=== PATIENT | male | born 1930 | race Caucasian/White ===

== ENCOUNTER 2017-01-17 07:24 | Emergency (ER) ==
[2017-01-17 07:24] VITALS: BMI 20.7
[2017-01-17 07:34] VITALS: BP 147/82; TEMP 98.5
--- NOTE | 2017-01-17 07:38 | ED.PDOC ---
General ED Provider: Dr. JON GIL JR Chief Complaint: Fall Stated Complaint: FELL IN KITCHEN THIS AM. UNSURE WHAT CAUSED FALL. DENIES HITTING HEAD OR LOC. LARGE SKIN TEAR LEFT FOREARM NEAR ELBOW.[End]0500 today 98.5 83 20 97% 147/82 4/10 SKIN TEAR LEFT FOREARM NEAR ELBOW. BLEEDING CONTROLLED. Time Seen by Physician: 07:38 Mode of Arrival: Walk-In Information Source: Patient, Family Exam Limitations: No limitations Primary Care Provider: FOUZIA OGLESBY Nursing and Triage Documentation Reviewed and Agree: Yes Review of Systems - Review Of Systems Constitutional: Reports: No symptoms Eyes: Reports: No symptoms Ears, Nose, Mouth, Throat: Reports: No symptoms Respiratory: Reports: No symptoms Cardiac: Reports: No symptoms GI: Reports: No symptoms : Reports: No symptoms Musculoskeletal: Reports: Other (toe pain) Skin: Reports: Lesions Neurological: Reports: No symptoms Endocrine: Reports: No symptoms Hematologic/Lymphatic: Reports: No symptoms All Other Systems: Other Past Medical History - Past Medical History Previously Healthy: Yes Endocrine: Reports: None Cardiovascular: Reports: Hypertension, A-Fib Respiratory: Reports: None Hematological: Reports: None Gastrointestinal: Reports: None Genitourinary: Reports: None Neuro/Psych: Reports: TIA Musculoskeletal: Reports: Arthritis Cancer: Reports: Breast - Surgical History General Surgical History: Reports: Pacemaker, Orthopedic (KNEE X 2, SHOULDER) - Family History Family History: Reports: Unknown - Social History Smoking Status: Former smoker Hx Substance Use: No Alcohol Screening: None - Immunizations Tetanus Shot up to Date: No Physical Exam - Physical Exam Appearance: Well-appearing, Thin Pain Distress: Mild Eyes: BENY, EOMI, Conjunctiva clear Neck: Supple Respiratory: Airway patent, Rhonchi (DENISHA CTA after deep breath) Cardiovascular: RRR, Pulses normal, No rub, No murmur GI/: Soft, Nontender, No masses, Bowel sounds normal, No Organomegaly Musculoskeletal: Normal strength, ROM intact, No edema, No calf tenderness Skin: Warm, Dry, Normal color (skin tears times three left forearm, erythema left medial scapula scalp nontender) Neurological: Sensation intact, Motor intact, Reflexes intact, Cranial nerves intact, Alert, Oriented Psychiatric: Affect appropriate, Mood appropriate Critical Care Note - Critical Care Note Total Time (mins): 0 Course - Course Orders, Labs, Meds: Orders Category Date Time Status ED WOUND CARE .ONCE EMERGENCY 01/17/17 08:02 Active Diphth,Pertuss(Acell),Tet Vac [Boostrix] MEDS 01/17/17 08:25 Discontinued 0.5 ml IM .ONCE ONE Medications Discontinued Medications Generic Name Dose Route Start Last Admin Trade Name Freq PRN Reason Stop Dose Admin Diphtheria/Pertussis/Tetanus Vacc 0.5 ml 01/17/17 08:25 Boostrix IM 01/17/17 08:26 .ONCE ONE Vital Signs: Temp Pulse Resp BP Pulse Ox 01/17/17 07:26 98.5 F 83 20 147/82 H 97 Departure - Departure Time of Disposition: 07:56 Disposition: HOME SELF-CARE Discharge Problem: Falls, Traumatic tear of skin Instructions: Skin Tear (ED), Chronic Wound Care (ED) Condition: Good Pt referred to PMD for follow-up: Yes Additional Instructions: soak left foot in soapy water or Epsom salts 20 minutes once or twice a day apply bacitracin or any antibiotic ointment twice a day 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 or may need a biopsy Skin on arm is torn- bandage change daily bacitracin to open area should heal within one week no evidence of head injury if confuses headache or not acting self return for recheck recheck PMD one week, sooner if not resolving Prescriptions: Bacitracin 1 applic TP 2-4XD #1 pkg Bacitracin 1 applic TP 2-4XD #1 pkg Allergies/Adverse Reactions: Allergies acetaminophen [From Darvocet-N 100] Adverse Reaction (Verified 01/17/17 07:25) clarithromycin [From Biaxin] Adverse Reaction (Verified 01/17/17 07:25) propoxyphene napsylate [From Darvocet-N 100] Adverse Reaction (Verified 07:25) Home Medications: Ambulatory Orders Bacitracin 1 applic TP 2-4XD #1 pkg 01/17/17 Bacitracin 1 applic TP 2-4XD #1 pkg 01/17/17 Disposition Discussed With: Patient, Family
[2017-01-17] MEDS ORDERED: TENIVAC IM ONE (08:18)
[2017-01-17] MEDS ORDERED: BOOSTRIX IM ONE (08:25)
== END 2017-01-17 08:39 | disposition home or self-care (01) ==
LOC: ED 07:24
DX: S51.812A Laceration without foreign body of left forearm, initial encounter (principal); M79.676 Pain in unspecified toe(s); W19.XXXA Unspecified fall, initial encounter
CPT/HCPCS: 90471; 99283

== ENCOUNTER 2017-04-09 19:57 | Outpatient (CLI) ==
[2017-04-10 00:36] VITALS: BMI 20.9
== END 2017-04-09 19:58 | disposition home or self-care (01) ==
LOC: AMBL 19:57
PROVIDERS: ATTEND Family Medicine
DX: R19.7 Diarrhea, unspecified (principal); R53.1 Weakness; Z95.0 Presence of cardiac pacemaker

== ENCOUNTER 2017-04-09 20:06 | Inpatient (IN) | payer OTHER ==
[2017-04-09] MEDS ORDERED: SODIUM CHLORIDE 1,000 ML IV STA ×2 (20:31→22:01)
[2017-04-09 21:28] LABS: BASOPHILS % (AUTO) 0.7 % (0.0-3.0); EOSINOPHILS # (AUTO) 0.1 K/ul (0.0-0.7); EOSINOPHILS % (AUTO) 1.5 % (0.0-7.0); HEMATOCRIT 39.3 % (42.0-52.0); IMMATURE GRANULOCYTE % (AUTO) 1.3 % (0.0-5.0); LYMPHOCYTES # (AUTO) 1.2 K/uL (0.60-3.4); LYMPHOCYTES % (AUTO) 22.3 (10.0-50.0); MEAN CORPUSCULAR HEMOGLOBIN 31.6 pg (27.0-31.0); MEAN CORPUSCULAR HGB CONC 33.1 (31.8-35.4); MEAN CORPUSCULAR VOLUME 95.6 fl (80.0-94.0); MONOCYTES # (AUTO) 0.5 K/uL (0.4-2.0); MONOCYTES % (AUTO) 8.8 (0-10); NEUTROPHILS # (AUTO) 3.5 K/ul (2.0-6.9); NEUTROPHILS % (AUTO) 65.4; PLATELET COUNT 191 10^3/uL (140-440); RED BLOOD COUNT 4.11 10^6/ul (4.70-6.10); WHITE BLOOD COUNT 5.37 K/ul (4.2-10.2)
--- NOTE | 2017-04-09 21:33 | CT ---
EXAM: CT scan of the abdomen and pelvis without contrast HISTORY: Diarrhea. TECHNIQUE: Imaging of the abdomen and pelvis was performed without contrast. 3 mm thin axial image s and coronal and sagittal reconstructions were provided for interpretation. FINDINGS: The liver, spleen, pancreas, adrenal glands appear normal. The proximal ureters are norm al size. 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 The aneurysm measures approximately 7.7 cm in length. There is atherosclerotic calcification of the wall of the abdominal aorta. The small and large bowel loops are normal caliber. There has be en previous cholecystectomy. There is a calcified area seen lateral to the mid and inferior pole of the left kidney. The findings may represent a chronic calcified subcapsular hematoma. The appendix appears normal. The helical images obtained through the pelvis demonstrate a normal appearance of the rectum, urinar y bladder. There is no free fluid seen within the pelvis. The appendix appears normal. There is n o free air. No acute abnormalities are seen within the anterior abdominal wall. Patchy opacities ar e suspected in the right lung base. The left lung base appears clear. No lytic or blastic lesions a re seen within the osseous structures. IMPRESSION: There is no bowel obstruction or acute inflammatory change seen within the abdomen and pelvis. There is a fusiform aneurysm of the infrarenal abdominal aorta measuring 5.5 cm diameter. Probable pneumonia seen in the right lung base. Previous cholecystectomy.
[2017-04-09 21:48] LABS: ALBUMIN 3.5 g/dL (3.4-5.0); ALBUMIN/GLOBULIN RATIO 0.83; ANION GAP 14.1; BILIRUBIN,TOTAL 0.71 mg/dL (0.00-1.20); BUN/CREATININE RATIO 25.8; CALCIUM 9.4 mg/dL (8.2-10.2); CREATININE 1.24 mg/dL (0.60-1.10); POTASSIUM 4.1 mmol/L (3.5-5.1); TOTAL PROTEIN 7.7 g/dL (5.8-8.1)
--- NOTE | 2017-04-09 22:25 | CT ---
EXAM: CT chest without intravenous contrast 04/09/2017. Sagittal and coronal reformatted images ob tained HISTORY: Cough COMPARISON: 04/14/2014 FINDINGS: Moderate cardiomegaly. Left-sided pacer device is in place. Multifocal atelectasis and scarring. Multiple pleural based calcifications. This may relate to prio r asbestos exposure. Ground-glass density throughout the right lower lobe. This involves a small portion of the right mi ddle lobe. This is suggestive of pneumonitis/pneumonia. No focal pulmonary consolidation. No pleural effusion or pneumothorax. IMPRESSION: 1. Cardiomegaly. Left-sided pacer device in place. 2. Multifocal atelectasis and scarring 3. Right basilar ground-glass infiltrates suggestive of pneumonitis/pneumonia. 4. 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 5. Aneurysmal dilatation of the abdominal aorta. This is only partially visualized. Please refer to report of CT abdomen pelvis for further evaluation.
[2017-04-09 22:42] LABS: BILIRUBIN,URINE 1+ (NEGATIVE); KETONES,URINE 1+ (NEGATIVE); LEUKOCYTE ESTERASE ,URINE Negative (NEGATIVE); NITRITE,URINE Negative (NEGATIVE); PH,URINE 5.5 (5-9); PROTEIN,URINE 1+ (NEGATIVE); URINE, BLOOD Negative (NEGATIVE)
[2017-04-09 22:44] LABS: ADD URINE MICROSCOPIC YES
--- NOTE | 2017-04-09 23:56 | ED.PDOC ---
General ED Provider: Dr. OWEN BROOKS-ER Chief Complaint: Diarrhea Stated Complaint: hes had three days of diarrhea and not eating Time Seen by Physician: 20:15 Mode of Arrival: Ambulance Information Source: Patient, Family Exam Limitations: Dementia Primary Care Provider: FOUZIA PAREKH Nursing and Triage Documentation Reviewed and Agree: Yes GI Complaint Exam - Vomiting/Diarrhea Complaint/Exam Onset/Duration: 3 days Symptoms Are: Resolved Initial Severity: Mild Current Severity: Mild Character of Diarrhea: Reports: Watery Aggravating: Reports: None Alleviating: Reports: None Associated Signs and Symptoms: Denies: Dizziness, Light-headedness, Melena, Hematemesis, Fever, Abdominal pain, Cramping Non-GI Risk Factors: Reports: None Abdominal Findings: Present: None Kussmaul Respirations Present: No Differential Diagnoses: Dehydration, Viral Gastroenteritis, UTI Review of Systems - Review Of Systems Constitutional: Reports: No symptoms Eyes: Reports: No symptoms Ears, Nose, Mouth, Throat: Reports: No symptoms Respiratory: Reports: No symptoms Cardiac: Reports: No symptoms GI: Reports: Diarrhea, Nausea, Poor appetite : Reports: No symptoms Musculoskeletal: Reports: No symptoms Skin: Reports: No symptoms Neurological: Reports: No symptoms Endocrine: Reports: No symptoms Hematologic/Lymphatic: Reports: No symptoms All Other Systems: Reviewed and Negative Past Medical History - Past Medical History Previously Healthy: Yes Endocrine: Reports: None Cardiovascular: Reports: Hypertension, A-Fib Respiratory: Reports: None Hematological: Reports: None Gastrointestinal: Reports: None Genitourinary: Reports: None Neuro/Psych: Reports: TIA, Dementia Musculoskeletal: Reports: Arthritis Cancer: Reports: Breast Other Pertinent Past Medical History: htn ca arth abib tia arth pacer - Surgical History General Surgical History: Reports: Pacemaker, Orthopedic (KNEE X 2, SHOULDER) - Family History Family History: Reports: Unknown - Social History Smoking Status: Former smoker Hx Substance Use: No Alcohol Screening: None Lives: With family - Immunizations Tetanus Shot up to Date: No Physical Exam - Physical Exam Appearance: Well-appearing, No pain distress, Well-nourished Eyes: BENY, EOMI, Conjunctiva clear ENT: Ears normal, Nose normal, Oropharynx normal Neck: Supple Respiratory: Airway patent, Breath sounds clear, Breath sounds equal, Respirations nonlabored Cardiovascular: RRR, Pulses normal, No rub, No murmur GI/: Soft, Nontender, No masses, Bowel sounds normal, No Organomegaly Musculoskeletal: Normal strength, ROM intact, No edema, No calf tenderness Skin: Warm, Dry, Normal color Neurological: Sensation intact, Motor intact, Reflexes intact, Cranial nerves intact, Alert, Oriented Psychiatric: Affect appropriate, Mood appropriate Interpretation - Radiology Interpretation Radiology Interpretation By: Radiologist Radiology Results: Negative Exam Interpreted: CT Scan Physician Notification - Case Discussed Physician Notified: dr parekh Time of Notification: 23:56 Critical Care Note - Critical Care Note Total Time (mins): 0 Course - Course Hematology/Chemistry: 04/09/17 21:20 04/09/17 21:20 Orders, Labs, Meds: Lab Review 04/09/17 04/09/17 21:20 22:30 WBC 5.37 RBC 4.11 L Hgb 13.0 L Hct 39.3 L MCV 95.6 H MCH 31.6 H MCHC 33.1 RDW Coeff of Lucina 13.2 Plt Count 191 Immature Gran % (Auto) 1.3 Neut % (Auto) 65.4 Lymph % (Auto) 22.3 Dixon % (Auto) 8.8 Eos % (Auto) 1.5 Baso % (Auto) 0.7 Immature Gran # (Auto) 0.1 Neut # 3.5 Lymph # 1.2 Dixon # 0.5 Eos # 0.1 Baso # 0.0 Sodium 137 Potassium 4.1 Chloride 105 Carbon Dioxide 22 L Anion Gap 14.1 BUN 32 H Creatinine 1.24 H Estimated GFR (MDRD) 55.00 BUN/Creatinine Ratio 25.80 Glucose 121 H Lactic Acid 11.7 Calcium 9.4 Total Bilirubin 0.71 AST 18 ALT 10 L Alkaline Phosphatase 83 Total Protein 7.7 Albumin 3.5 Globulin 4.2 Albumin/Globulin Ratio 0.83 Amylase 55 Lipase 10 Procalcitonin < 0.05 Urine Color Yellow Urine Clarity Clear Urine pH 5.5 Ur Specific [place] 1.020 Urine Protein 1+ Urine Glucose (UA) Negative Urine Ketones 1+ Urine Blood Negative Urine Nitrite Negative Urine Bilirubin 1+ Urine Urobilinogen 1.0 Ur Leukocyte Esterase Negative Ur Squamous Epith Cells Not present Hyaline Casts 20-30 Urine Mucus 3+ Orders Category Date Time Status IV [ED IV/MEDIPORT/POWERPORT] .ONCE EMERGENCY 04/09/17 20:31 Active AMYLASE Stat LAB 04/09/17 21:20 Completed BLOOD CULTURE Stat LAB 04/09/17 21:20 Received CBC W/ AUTO DIFF Stat LAB 04/09/17 21:20 Completed COMPREHENSIVE METABOLIC PANEL Stat LAB 04/09/17 21:20 Completed LACTIC ACID Stat LAB 04/09/17 21:20 Completed LIPASE Stat LAB 04/09/17 21:20 Completed PROCALCITONIN Stat LAB 04/09/17 21:20 Completed URINALYSIS C & S IF INDICATED Stat LAB 04/09/17 22:30 Completed 0.9 % Sodium Chloride [Saline Flush] MEDS 04/09/17 20:31 Ordered 1 syr IVF PRN PRN Sodium Chloride 0.9% [Sodium Chloride] 1,000 ml MEDS 04/09/17 22:01 Active IV 125 mls/hr Sodium Chloride 0.9% [Sodium Chloride] 1,000 ml MEDS 04/09/17 20:[address] ABDOMEN/PELVIS WO CONTRAST Stat RADS 04/09/17 20:[address] CHEST W/O CONTRAST Stat RADS 04/09/17 22:05 Completed Medications Generic Name Dose Route Start Last Admin Trade Name Freq PRN Reason Stop Dose Admin Sodium Chloride 1,000 mls @ 125 mls/hr 04/09/17 22:01 04/09/17 22:29 Sodium Chloride IV 04/10/17 06:00 125 mls/hr .Q8H STA Administration Sodium Chloride 1 syr 04/09/17 20:31 04/09/17 20:44 Saline Flush IVF 1 syr PRN PRN Administration To flush IV Discontinued Medications Generic Name Dose Route Start Last Admin Trade Name Freq PRN Reason Stop Dose Admin Sodium Chloride 1,000 mls @ 1,000 mls/hr 04/09/17 20:31 04/09/17 20:44 Sodium Chloride IV 04/09/17 21:30 1,000 mls/hr BOLUS STA Administration Vital Signs: Temp Pulse Resp BP Pulse Ox 04/09/17 20:13 99.4 F 89 20 123/90 97 Departure - Departure Time of Disposition: 23:56 Disposition: ADMITTED INPATIENT Discharge Problem: Dehydration, Enteritis Condition: Good Pt referred to PMD for follow-up: Yes Allergies/Adverse Reactions: Allergies acetaminophen [From Darvocet-N 100] Adverse Reaction (Verified 01/17/17 07:25) clarithromycin [From Biaxin] Adverse Reaction (Verified 01/17/17 07:25) propoxyphene napsylate [From Darvocet-N 100] Adverse Reaction (Verified 07:25) Home Medications: Ambulatory Orders 1 [No Reported Medications] 04/09/17 Transfer Form Completed: No Disposition Discussed With: Family
[2017-04-10] MEDS ORDERED: ROCEPHIN 1 GM in SODIUM CHLORIDE 50 ML IV SCH (00:30)
[2017-04-10 00:36] VITALS: BMI 20.9
[2017-04-10] MEDS ORDERED: ROCEPHIN ONE (00:39)
[2017-04-10] MEDS: D5%-NS-KCL 20 MEQ/L IV SOL 1,000 ML IV SCH ×2 (00:44→20:23)
[2017-04-10 06:13] LABS: BASOPHILS % (AUTO) 0.4 % (0.0-3.0); EOSINOPHILS # (AUTO) 0.1 K/ul (0.0-0.7); EOSINOPHILS % (AUTO) 0.9 % (0.0-7.0); HEMOGLOBIN 11.4 g/dl (14.0-18.0); IMMATURE GRANULOCYTE % (AUTO) 0.4 % (0.0-5.0); LYMPHOCYTES # (AUTO) 1.6 K/uL (0.60-3.4); LYMPHOCYTES % (AUTO) 17.3 (10.0-50.0); MEAN CORPUSCULAR HEMOGLOBIN 32.8 pg (27.0-31.0); MEAN CORPUSCULAR HGB CONC 34.7 (31.8-35.4); MEAN CORPUSCULAR VOLUME 94.5 fl (80.0-94.0); MONOCYTES # (AUTO) 0.6 K/uL (0.4-2.0); NEUTROPHILS # (AUTO) 6.9 K/ul (2.0-6.9); PLATELET COUNT 163 10^3/uL (140-440); RED BLOOD COUNT 3.48 10^6/ul (4.70-6.10); WHITE BLOOD COUNT 9.18 K/ul (4.2-10.2)
[2017-04-10 06:14] LABS: HEMATOCRIT 32.9 % (42.0-52.0)
[2017-04-10 06:29] LABS: ALBUMIN 2.9 g/dL (3.4-5.0); ALBUMIN/GLOBULIN RATIO 0.76; ANION GAP 11.9; BILIRUBIN,TOTAL 0.67 mg/dL (0.00-1.20); BUN/CREATININE RATIO 29.47; CALCIUM 8.4 mg/dL (8.2-10.2); CREATININE 0.95 mg/dL (0.60-1.10); POTASSIUM 3.9 mmol/L (3.5-5.1); TOTAL PROTEIN 6.7 g/dL (5.8-8.1)
[2017-04-10] MEDS: XOPENEX 0.63 MG NEB SCH ×3 (07:42→21:13)
[2017-04-10] MEDS: DOXYCYCLINE HYCLATE PO SCH ×2 (08:36→20:20)
[2017-04-10] MEDS: LOVENOX SUBCUT SCH (08:36)
[2017-04-10] MEDS: ROCEPHIN 1 GM in SODIUM CHLORIDE 50 ML IV SCH (20:20)
[2017-04-11 04:25] LABS: BASOPHILS % (AUTO) 0.5 % (0.0-3.0); EOSINOPHILS # (AUTO) 0.2 K/ul (0.0-0.7); EOSINOPHILS % (AUTO) 2.3 % (0.0-7.0); HEMATOCRIT 32.3 % (42.0-52.0); IMMATURE GRANULOCYTE % (AUTO) 0.8 % (0.0-5.0); LYMPHOCYTES # (AUTO) 1.5 K/uL (0.60-3.4); LYMPHOCYTES % (AUTO) 22.4 (10.0-50.0); MEAN CORPUSCULAR HEMOGLOBIN 32.4 pg (27.0-31.0); MEAN CORPUSCULAR HGB CONC 34.1 (31.8-35.4); MEAN CORPUSCULAR VOLUME 95.3 fl (80.0-94.0); MONOCYTES # (AUTO) 0.5 K/uL (0.4-2.0); MONOCYTES % (AUTO) 8.3 (0-10); NEUTROPHILS # (AUTO) 4.3 K/ul (2.0-6.9); NEUTROPHILS % (AUTO) 65.7; PLATELET COUNT 149 10^3/uL (140-440); RED BLOOD COUNT 3.39 10^6/ul (4.70-6.10); WHITE BLOOD COUNT 6.48 K/ul (4.2-10.2)
[2017-04-11 04:47] LABS: ALBUMIN 2.9 g/dL (3.4-5.0); ALBUMIN/GLOBULIN RATIO 0.85; ANION GAP 10.9; BILIRUBIN,TOTAL 0.51 mg/dL (0.00-1.20); BUN/CREATININE RATIO 21.34; CALCIUM 8.3 mg/dL (8.2-10.2); CREATININE 0.89 mg/dL (0.60-1.10); POTASSIUM 3.9 mmol/L (3.5-5.1); TOTAL PROTEIN 6.3 g/dL (5.8-8.1)
[2017-04-11] MEDS: XOPENEX 0.63 MG NEB SCH ×3 (05:20→22:08)
[2017-04-11] MEDS: LOVENOX SUBCUT SCH (08:40)
[2017-04-11] MEDS: DOXYCYCLINE HYCLATE PO SCH ×2 (08:40→20:06)
[2017-04-11] MEDS: D5%-NS-KCL 20 MEQ/L IV SOL 1,000 ML IV SCH ×2 (10:35→12:08)
[2017-04-11] MEDS: ROCEPHIN 1 GM in SODIUM CHLORIDE 50 ML IV SCH (20:06)
[2017-04-12 04:42] LABS: BASOPHILS % (AUTO) 0.2 % (0.0-3.0); EOSINOPHILS % (AUTO) 0.3 % (0.0-7.0); HEMATOCRIT 33.5 % (42.0-52.0); HEMOGLOBIN 11.2 g/dl (14.0-18.0); IMMATURE GRANULOCYTE % (AUTO) 0.9 % (0.0-5.0); LYMPHOCYTES # (AUTO) 0.9 K/uL (0.60-3.4); LYMPHOCYTES % (AUTO) 9.6 (10.0-50.0); MEAN CORPUSCULAR HEMOGLOBIN 31.7 pg (27.0-31.0); MEAN CORPUSCULAR HGB CONC 33.4 (31.8-35.4); MEAN CORPUSCULAR VOLUME 94.9 fl (80.0-94.0); MONOCYTES # (AUTO) 0.7 K/uL (0.4-2.0); MONOCYTES % (AUTO) 7.4 (0-10); NEUTROPHILS # (AUTO) 7.4 K/ul (2.0-6.9); NEUTROPHILS % (AUTO) 81.6; PLATELET COUNT 145 10^3/uL (140-440); RED BLOOD COUNT 3.53 10^6/ul (4.70-6.10); WHITE BLOOD COUNT 9.04 K/ul (4.2-10.2)
[2017-04-12 05:02] LABS: ALBUMIN/GLOBULIN RATIO 0.86; ANION GAP 11.1; BILIRUBIN,TOTAL 0.78 mg/dL (0.00-1.20); BUN/CREATININE RATIO 18.39; CALCIUM 8.8 mg/dL (8.2-10.2); CREATININE 0.87 mg/dL (0.60-1.10); POTASSIUM 4.1 mmol/L (3.5-5.1); TOTAL PROTEIN 6.5 g/dL (5.8-8.1)
[2017-04-12] MEDS: XOPENEX 0.63 MG NEB SCH ×3 (05:06→22:41)
[2017-04-12] MEDS: DOXYCYCLINE HYCLATE PO SCH ×2 (08:41→20:30)
[2017-04-12] MEDS: LOVENOX SUBCUT SCH (08:41)
--- NOTE | 2017-04-12 15:33 | DI ---
Exam: Single view chest x-ray. Date: 04/12/2017. Comparison: 04/14/2014. HISTORY: Cough. FINDINGS: Surgical clips are again seen in the right axilla and a ventricular pacemaker is also not ed. There are pleural based calcifications. The cardiac silhouette is enlarged. The pulmonary vas culature is normal. ASVD is present. Impression: No acute intrathoracic findings on the current exam, but ground-glass infiltrates were seen on CT scan performed 04/09/2017 suggest of pneumonitis/pneumonia. Pleural calcifications suggestive of prior asbestos exposure. Stable cardiomegaly with ventricular pacemaker.
[2017-04-12] MEDS: ROCEPHIN 1 GM in SODIUM CHLORIDE 50 ML IV SCH (20:30)
[2017-04-12] MEDS: D5%-NS-KCL 20 MEQ/L IV SOL 1,000 ML IV SCH (23:11)
[2017-04-13 04:31] LABS: BASOPHILS % (AUTO) 0.6 % (0.0-3.0); EOSINOPHILS # (AUTO) 0.1 K/ul (0.0-0.7); EOSINOPHILS % (AUTO) 1.4 % (0.0-7.0); HEMATOCRIT 33.5 % (42.0-52.0); HEMOGLOBIN 11.3 g/dl (14.0-18.0); IMMATURE GRANULOCYTE % (AUTO) 0.8 % (0.0-5.0); LYMPHOCYTES # (AUTO) 1.4 K/uL (0.60-3.4); LYMPHOCYTES % (AUTO) 19.3 (10.0-50.0); MEAN CORPUSCULAR HEMOGLOBIN 32.4 pg (27.0-31.0); MEAN CORPUSCULAR HGB CONC 33.7 (31.8-35.4); MONOCYTES # (AUTO) 0.6 K/uL (0.4-2.0); MONOCYTES % (AUTO) 8.7 (0-10); NEUTROPHILS # (AUTO) 4.9 K/ul (2.0-6.9); NEUTROPHILS % (AUTO) 69.2; PLATELET COUNT 150 10^3/uL (140-440); RED BLOOD COUNT 3.49 10^6/ul (4.70-6.10)
[2017-04-13 04:55] LABS: ALBUMIN 2.9 g/dL (3.4-5.0); ALBUMIN/GLOBULIN RATIO 0.76; ANION GAP 11.9; BILIRUBIN,TOTAL 0.68 mg/dL (0.00-1.20); BUN/CREATININE RATIO 17.44; CALCIUM 8.8 mg/dL (8.2-10.2); CREATININE 0.86 mg/dL (0.60-1.10); POTASSIUM 3.9 mmol/L (3.5-5.1); TOTAL PROTEIN 6.7 g/dL (5.8-8.1)
[2017-04-13] MEDS: XOPENEX 0.63 MG NEB SCH ×3 (05:05→22:48)
[2017-04-13] MEDS: DOXYCYCLINE HYCLATE PO SCH ×2 (08:52→20:16)
[2017-04-13] MEDS: LOVENOX SUBCUT SCH (08:52)
--- NOTE | 2017-04-13 12:01 | HP ---
SOURCE: The source of this information is discussion with his son, ER personnel and review of his office records; the patient is not able to give any reliable history. PATIENT PROFILE: Mr. Arias is an 86-year-old male resident of [place]; he was cooperative. CHIEF COMPLAINT: "He just keeps pooping on himself." BRIEF HISTORY OF PRESENT ILLNESS: Apparently Mr. Arias for three days has had diarrhea. He has a degree of dementia and insists on living alone. He is in complete denial about his memory loss, cognitive decline and decreasing abilities and the difficulties that causes him and his family. His family tried to get him to come to the office or ER earlier in the day; when his problem continued and he was fecally incontinent they called an ambulance. He was brought to the ER where a CT showed even possible pneumonia (though there has been no mention of fever or cough). We do incidentally note that his abdominal aortic aneurysm is now 5.7 cm up from 113 at 4.5 (in 2006 it was only 3.1). He saw Dr. Prado in 2008 and has been lost to followup. When I saw him he had had no diarrhea since here and fluids made him feel less fatigued; he was not having or has he recently had any abdominal pain. PAST HISTORY: CHILDHOOD: Unremarkable. ALLERGIES/INTOLERANCE: BIAXIN (NAUSEA), DARVOCET (DIZZINESS), IRON (CONSTIPATION ), LORCET (NAUSEA), MOBIC (GI UPSET), TYLENOL #3 (NAUSEA), VIOXX (EDEMA). CURRENT MEDICATIONS: He says he is on none - (previous medicines have included: Aspirin, Flomax, Folic Acid, Lanoxin and Procardia 30). HOSPITALIZATIONS/SURGERIES/PROCEDURES: Last admission includes [facility] 03/20 through 03/23/16, discharge impression cellulitis of the face; he has previous admissions to [facility], 03/08 through 03/09/10 for weakness and gastroenteritis; 10/19 through 10/23/10 for right lower lobe pneumonia; 11/14 through 11/21/14 for diarrhea; 01/26 through for weakness. [facility] admissions include: 03/31 through 04/03/96 for TIA/I & D with new atrial fibrillation; 09/27 through 09/27/08 for pacer change; 03/02 through 03/04/05 for left upper extremity cellulitis; 07/12 through 07/13/10 for dizziness; 08/15 through 08/21/10, Dr. Lindo for epistaxis; 03/03 through for left epistaxis; 09/20 through 09/21/13 for epistaxis; 09/23 through 09/25 for epistaxis; 01/26 through 01/31/15 for leg weakness; 03/20 through 03/23/16 for facial cellulitis. [facility] admission: 11/14 through 12/01/14 for diarrhea; through 01/28/16 for weakness. He has had many colonoscopies, the last one showed polyps, diverticular changes at [place], Dr. Bruce on 07/08/11 to repeat in three years (which he hasn't); previous have shown even diverticular changes. He had a heart cath with 99% branch [facility], 12/25/94, pacer for atrial fibrillation and chronotropic failure, Dr. Selby, [facility], 11/19/97. Left total knee, [facility], Dr. Martinez, 04/20/02 ; right total knee, Dr. Juan Garcia, 03/28/04; right cataract, Dr. Blandon, ; left cataract, Dr. Blandon, 12/31/15; left breast cancer, Dr. Malik, [facility] , 08/09/12; left back/flank evaluation, Dr. King Hawkins, 03/28/13. FAMILY HISTORY: Lung cancer in father; triple aortic aneurysm in father; COPD in brother; heart disease in brother and cancer, prostate in father. HABITS: He has smoked since age 8, one pack per day stopping 1987. SOCIAL HISTORY: once 89 to his current . She lives in a chcf with advanced dementia. He has two sons, who is his primary caregiver with associated family. Retired in 1987. He is a [facility] patient and at times has gotten are through them having been in the [place]. REVIEW OF SYSTEMS: GENERAL: Denies fever. HEENT: Denies headache or visual change. NECK: Denies neck or mass. 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 He has been advised to have it removed and hasn't. CHEST: Denies cough or chest pain. CARDIOVASCULAR: Denies palpitations, ankle edema. GI: Denies nausea or vomiting and of course loose stools which have been frequent with fecal incontinence. MUSCULOSKELETAL: Denies any joint pain. NEUROLOGIC: Denies any slurred speech, weakness of extremities; in fact, he denies any memory loss (though his family admits it is quite severe). PSYCHIATRIC: There has been no mention of anxiety or depression. PHYSICAL EXAMINATION: VITALS: Weight 135 and down; for example 03/09/05 he weighed 168 and by 04/27/16 he weighed 145; height 5'10", temperature 99.4, pulse 89, respirations 20, BP 123/90. GENERAL: Younger than stated age white male in no obvious distress. INTEGUMENT: Slightly pale. Mucous membranes are moist. No ankle edema. HEENT: Facial symmetry. Pupils equal, round, extraocular movements intact. There is a 1 cm umbilicated raised lesion on the posterior aspect of the lateral left neck. NECK: No visible lymphadenopathy, thyromegaly, mass seen or felt and supple. CHEST: Clear. CARDIOVASCULAR: Irregular. Pacer in the left upper chest area. No ankle edema. Distal pulses intact. GI: Gentle pulsation; mildly scaphoid, no rebound, guarding or organomegaly. MUSCULOSKELETAL/NEUROLOGIC: No red swollen joints, moves all quadrants equal. Feeder Tender are equal. Facial symmetry. Speech is clear. PSYCHIATRIC: Oriented to person, place. Not date and didn't know it was morning. Repetitious, asking the same questions over and over. Shallow level of insight suspect; did not know the current President. ASSESSMENT/PROBLEM LIST: 0. 86-year-old white male - advanced age. 1. Allergies/intolerances - see above. 2. Procedural history - see above. 3. Family history - see above. 4. Previous smoker. 5. Abdominal aortic aneurysm - growing without supervision (not sure if the family is really going to want this intervened). 6. Atrial fibrillation - chronic and rate controlled. 7. Coronary artery disease; if any symptoms not obvious. 8. Previous anticoagulation - indication atrial fibrillation has stopped with repetitious periods of epistaxis. 9. Lumbosacral spondylosis. 10. Diverticular disease by colonoscopy. 11. 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 12. Hiatal hernia. 13. Hyperlipidemia. 14. Hypertension. 15. Colon polyps. 16. Rheumatoid arthritis with previous immunosuppressive medicines. 17. Rosacea. 18. History of stasis. 19. Varicose veins. 20. Lanoxin therapy in the past - indication atrial fibrillation rate controlled. 21. Recurrent intermittent epistaxis - with anticoagulation. 22. History of TIA. 23. Superficial phlebitis. 24. Dementia. 25. Gait difficulties - multifactorial. 26. Occasional falls. 27. History of breast cancer - before. 28. Weight loss. REASON FOR ADMISSION: # Diarrhea # Fecal incontinence # Incidental noted abnormal chest x-ray of very questionable clinical significance # Gait decline - acute on chronic # Weight loss PLAN: 1. Gentle fluids that will allow the antibiotics to be continued that have already been started; while we watch his clinical response. 2. Daily labs. 3. Watch for any needs for more medications. 4. Always explore with the family whether placement is needed. 5. See if the family wants to do anything with the aneurysm. RITA
--- NOTE | 2017-04-13 13:21 | PN ---
DATE OF SERVICE: 04/11/17 CHIEF COMPLAINT: "He had diarrhea." SUBJECTIVE: Mr. Arias was admitted after several bouts of fecal incontinence and diarrhea. Since here he has had none. He did seem to have a mild degree of dehydration as he seemed less confused than his baseline after having some fluids. There is also on CT a question of pneumonia though he has had no cough or fever. We have discovered that he was drinking 8 to 10 Ensures a day, the likely cause for his diarrhea. His family is struggling because they really want to put him in a fdc but he refuses to go. He lives alone and his care is at times dubious. OBJECTIVE: V/S: Temperature 97.5, pulse 45, respirations 20, BP 158/86. GENERAL: No obvious distress. INTEGUMENT: No rash or edema. Nonicteric sclerae. Mucous membranes moist. HEENT: Facial symmetry. Pupils equal, extraocular movements intact. NECK: No mass or thyroid; supple. CHEST: Clear. CARDIOVASCULAR: Paced, irregular; with no peripheral edema. Mild abdominal pulsation with no tenderness. GI: No organomegaly, rebound or guarding. MUSCULOSKELETAL: Moves four quadrants equal; no joints are swollen. NEUROLOGIC: Oriented to person, not place or date. Shallow level of understanding though some purposeful conversation talking about his at the fdc. LABS/X-RAYS: Potassium 3.9, GFR 81, hemoglobin 11, white count 6.48. Blood cultures are negative. ASSESSMENT: # Diarrhea # Fecal incontinence # Mild dehydration # Abnormal chest x-ray suggests for possible pneumnonia - on antibiotics # Dementia # Care issues # Abdominal aortic aneurysm - actually surgical if the patient and family decide PLAN: 1. I talked with the son and he says they are leaning not to surgery; the patient says he wants nothing done for his aneurysm. 2. Continue diet; diminish fluids and watch his oral intake and for any development of diarrhea. 3. The family is at least interested in Home Health. I doubt we can get this over the holiday and that may preclude him staying for the holiday weekend. RITA
--- NOTE | 2017-04-13 13:33 | PN ---
DATE OF SERVICE: 04/12/17 CHIEF COMPLAINT: "He had diarrhea." SUBJECTIVE: Mr. Arias has mild to moderate dementia - likely Alzheimer's. He has other medical problems listed below. He apparently was using large quantities of Ensure. He developed very frequent watery stools even to the point of fecal incontinence. He lives alone despite the family wanting him to be in a [place] [facility] facility; this was leading to great concerns for injury or fall and his ability to care for himself. He was brought to the ER. On the CT scan of the chest there was even a thought that he might have pneumonia though it was without fever or cough. He has been on antibiotics and did run a low grade temperature last night. OBJECTIVE: V/S: Highest temperature 100, pulse 72, respirations 12, BP 124/86. GENERAL: No obvious distress. INTEGUMENT: Eyegrounds are pink, nonicteric sclerae. Mucous membranes moist. No ankle edema. HEENT: Facial symmetry. Pupils are equal. Extraocular movements intact. NECK: No mass or thyroid and supple. CHEST: Clear, no wheeze or dullness. CARDIOVASCULAR: S1, S2 irregular, probably paced, pacer right upper chest. No ankle edema. Soft bruit of the abdomen and a mild pulsation with no tenderness. GI: No organomegaly or tenderness. MUSCULOSKELETAL: No red swollen joints and moves all four quadrants equal. NEUROLOGIC: Only oriented to me as a person; did not know the date or where he was. Some conversation about his being in the [place] [facility] that was normal. LABS/X-RAYS: Reviewed; all look better. Blood cultures are still negative and there was no urine culture done. ASSESSMENT: # Diarrhea - probably related to excessive use of Ensure # Fecal incontinence # Care issues at home - risk to live by himself # Dementia - moderate # Abdominal aortic aneurysm, surgical, if the family and patient decide and at this point they are leaning against even with the realities of what that means - i.e. if there is rupture # Abnormal chest x-ray - some mention of pneumonia that just doesn't match clinically except for this temperature # Fever of 100 PLAN: 1. Check chest x-ray 2. Family wants at least home health and realizing that we probably cannot get that until tomorrow, we are continuing to delay his discharge; and he has other reasons to recheck his chest x-ray and watch his temperature. 3. We have reviewed labs, medications and see no need for changes at this point. MTDD
--- NOTE | 2017-04-13 13:55 | CT ---
EXAM: CT head without contrast HISTORY: Confusion COMPARISON: CT head 01/26/2015, 04/14/2014 and multiple priors TECHNIQUE: Serial axial images of the brain were obtained from the skull base to the vertex without IV contrast. FINDINGS: The ventricles, cisterns and sulci demonstrate generalized volume loss. There is loss of the johnson-white matter junction in the right temporal parietal region. There is scattered low attenu ation throughout the periventricular white matter. There is no acute hemorrhage. No midline shift or mass is identified. There is no abnormal intra or extra-axial fluid collection. The paranasal s inuses and mastoid air cells are clear. The osseous calvarium is intact. IMPRESSION: 1. Low attenuation obscuring the johnson-white matter junction in the right temporal and parietal lobe s consistent with age indeterminate probable subacute infarct. If further evaluation is indicated, MRI may be obtained. 2. Scattered microangiopathy and generalized volume loss. Results were discussed with nurse Maddox in the ICU at 1:51 p.m. same day as exam.
[2017-04-13] MEDS ORDERED: MOBIC PO STA (15:28)
[2017-04-13] MEDS ORDERED: MOBIC PO PRN (15:28)
[2017-04-13] MEDS ORDERED: TOPROL XL PO STA (17:19)
[2017-04-13] MEDS: ROCEPHIN 1 GM in SODIUM CHLORIDE 50 ML IV SCH (20:16)
[2017-04-14 04:23] LABS: BASOPHILS # (AUTO) 0.1 K/uL (0-0.2); BASOPHILS % (AUTO) 0.6 % (0.0-3.0); EOSINOPHILS # (AUTO) 0.2 K/ul (0.0-0.7); EOSINOPHILS % (AUTO) 1.8 % (0.0-7.0); HEMATOCRIT 32.9 % (42.0-52.0); HEMOGLOBIN 11.3 g/dl (14.0-18.0); IMMATURE GRANULOCYTE % (AUTO) 1.2 % (0.0-5.0); LYMPHOCYTES # (AUTO) 1.6 K/uL (0.60-3.4); LYMPHOCYTES % (AUTO) 18.9 (10.0-50.0); MEAN CORPUSCULAR HEMOGLOBIN 32.3 pg (27.0-31.0); MEAN CORPUSCULAR HGB CONC 34.3 (31.8-35.4); MONOCYTES # (AUTO) 0.7 K/uL (0.4-2.0); MONOCYTES % (AUTO) 8.5 (0-10); NEUTROPHILS # (AUTO) 5.8 K/ul (2.0-6.9); PLATELET COUNT 160 10^3/uL (140-440); WHITE BLOOD COUNT 8.38 K/ul (4.2-10.2)
[2017-04-14 04:47] LABS: ALBUMIN 2.9 g/dL (3.4-5.0); ALBUMIN/GLOBULIN RATIO 0.83; ANION GAP 11.7; BILIRUBIN,TOTAL 0.64 mg/dL (0.00-1.20); BUN/CREATININE RATIO 20.68; CALCIUM 8.9 mg/dL (8.2-10.2); CREATININE 0.87 mg/dL (0.60-1.10); POTASSIUM 3.7 mmol/L (3.5-5.1); TOTAL PROTEIN 6.4 g/dL (5.8-8.1)
[2017-04-14] MEDS: XOPENEX 0.63 MG NEB SCH ×2 (05:08→14:08)
--- NOTE | 2017-04-14 07:25 | PN ---
DATE OF SERVICE: 04/13/17 CHIEF COMPLAINT: "He has had a stroke." SUBJECTIVE: This gentleman was admitted through the ER with several days of loose stools and fecal incontinence. This was on top of dementia that is probably Alzheimer's , if not related to previous CVAs and then discovering that he was drinking upwards of nine Ensure's a day. Once admitted his diarrhea stopped. We were not even able to get any samples. It was brought to our attention today by the family that his mentation is significantly worse than usual. We explored and found a CT of the head was not done in the ER and make note that while here he has never seemed focal. We did a CT of his head and it showed a parietal temporal subacute stroke. He is paced with chronic atrial fibrillation in and out and intolerance to any anticoagulation due to recurring nosebleeds, falls and risk for injury. I discussed with the son and he still wants a conservative approach. The two sons are actually going through the process of trying to decide if they can convince their father to use a [facility] or rehab at least for a period of time. There has been no dysphasia or weakness of extremities. OBJECTIVE: V/S: Temperature 97.6, pulse 108, respirations 20, BP 156/88. GENERAL: Pleasant, personable, no obvious distress. INTEGUMENT: Turgor is adequate. Mucous membranes moist. No ankle edema. HEENT: Facial symmetry. Pupils are equal. Extraocular movements are intact. NECK: Supple, nontender. CHEST: Clear. CARDIOVASCULAR: Irregular with no murmur. He still has the abdominal pulsation and no tenderness. MUSCULOSKELETAL: No red or swollen joints, moves all four quadrants equal. PSYCHIATRIC: He knew me and knew he was in the hospital but didn't know which one, did not know the date. He did speak when I asked questions about his grandsons quite accurately. LABS/X-RAYS: White count 7.10, hemoglobin 11.3. Chemistries are unremarkable. Note blood sugar 105. BUN 15, creatinine 0.86. ASSESSMENT: # Diarrhea - probably related to excessive use of Ensure # Fecal incontinence # Care issues at home - risk to live by himself # Dementia - moderate # Abdominal aortic aneurysm, surgical, if the family and patient decide and at this point they are leaning against even with the realities of what that means - i.e. if there is rupture # Abnormal chest x-ray - some mention of pneumonia that just doesn't match clinically except for this temperature # Fever of 100 # Subacute right temporal parietal lobe CVA (one would have to assume this is probably embolic with his atrial arrhythmias) # Elevated blood pressure PLAN: 1. Add Toprol. 2. The son and I discussed anticoagulation and he doesn't want to use it. 3. Perhaps we will know tomorrow where the family is going to seek placement. RITA
[2017-04-14] MEDS: DOXYCYCLINE HYCLATE PO SCH (08:24)
[2017-04-14] MEDS: LOVENOX SUBCUT SCH (08:24)
[2017-04-14] MEDS ORDERED: TOPROL XL PO SCH (09:00)
[2017-04-14 14:38] VITALS: BP 158/100; TEMP 97.4
--- NOTE | 2017-04-14 15:07 | DS ---
SOURCE: The source of this information is discussion with his son, ER personnel and review of his office records; the patient is not able to give any reliable history. PATIENT PROFILE: Mr. Arias is an 86-year-old male resident of [place]; he was cooperative. CHIEF COMPLAINT: "He just keeps pooping on himself." BRIEF HISTORY OF PRESENT ILLNESS: Apparently Mr. Arias for three days has had diarrhea. He has a degree of dementia and insists on living alone. He is in complete denial about his memory loss, cognitive decline and decreasing abilities and the difficulties that causes him and his family. His family tried to get him to come to the office or ER earlier in the day; when his problem continued and he was fecally incontinent they called an ambulance. He was brought to the ER where a CT showed even possible pneumonia (though there has been no mention of fever or cough). We do incidentally note that his abdominal aortic aneurysm is now 5.7 cm up from 113 at 4.5 (in 2006 it was only 3.1). He saw Dr. Prado in 2008 and has been lost to followup. When I saw him he had had no diarrhea since here and fluids made him feel less fatigued; he was not having or has he recently had any abdominal pain. PAST HISTORY: CHILDHOOD: Unremarkable. ALLERGIES/INTOLERANCE: BIAXIN (NAUSEA), DARVOCET (DIZZINESS), IRON (CONSTIPATION ), LORCET (NAUSEA), MOBIC (GI UPSET), TYLENOL #3 (NAUSEA), VIOXX (EDEMA). CURRENT MEDICATIONS: He says he is on none - (previous medicines have included: Aspirin, Flomax, Folic Acid, Lanoxin and Procardia 30). HOSPITALIZATIONS/SURGERIES/PROCEDURES: Last admission includes [facility] 03/20 through 03/23/16, discharge impression cellulitis of the face; he has previous admissions to [facility], 03/08 through 03/09/10 for weakness and gastroenteritis; 10/19 through 10/23/10 for right lower lobe pneumonia; 11/14 through 11/21/14 for diarrhea; 01/26 through for weakness. [facility] admissions include: 03/31 through 04/03/96 for TIA/I & D with new atrial fibrillation; 09/27 through 09/27/08 for pacer change; 03/02 through 03/04/05 for left upper extremity cellulitis; 07/12 through 07/13/10 for dizziness; 08/15 through 08/21/10, Dr. Lindo for epistaxis; 03/03 through for left epistaxis; 09/20 through 09/21/13 for epistaxis; 09/23 through 09/25 for epistaxis; 01/26 through 01/31/15 for leg weakness; 03/20 through 03/23/16 for facial cellulitis. [facility] admission: 11/14 through 12/01/14 for diarrhea; through 01/28/16 for weakness. He has had many colonoscopies, the last one showed polyps, diverticular changes at [facility], Dr. Bruce on 07/08/11 to repeat in three years (which he hasn't); previous have shown even diverticular changes. He had a heart cath with 99% branch [facility], 12/25/94, pacer for atrial fibrillation and chronotropic failure, Dr. Selby, [facility], 11/19/97. Left total knee, [facility], Dr. Martinez, 04/20/02 ; right total knee, Dr. Juan Garcia, 03/28/04; right cataract, Dr. Blandon, ; left cataract, Dr. Blandon, 12/31/15; left breast cancer, Dr. Malik, [facility] , 08/09/12; left back/flank evaluation, Dr. King Hawkins, 03/28/13. FAMILY HISTORY: Lung cancer in father; triple aortic aneurysm in father; COPD in brother; heart disease in brother and cancer, prostate in father. HABITS: He has smoked since age 8, one pack per day stopping 1987. SOCIAL HISTORY: once 89 to his current . She lives in a halfway with advanced dementia. He has two sons, who is his primary caregiver with associated family. Retired in 1987. He is a [facility] patient and at times has gotten are through them having been in the [place]. REVIEW OF SYSTEMS: GENERAL: Denies fever. HEENT: Denies headache or visual change. NECK: Denies neck or mass. 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 He has been advised to have it removed and hasn't. CHEST: Denies cough or chest pain. CARDIOVASCULAR: Denies palpitations, ankle edema. GI: Denies nausea or vomiting and of course loose stools which have been frequent with fecal incontinence. MUSCULOSKELETAL: Denies any joint pain. NEUROLOGIC: Denies any slurred speech, weakness of extremities; in fact, he denies any memory loss (though his family admits it is quite severe). PSYCHIATRIC: There has been no mention of anxiety or depression. PHYSICAL EXAMINATION: VITALS: Weight 135 and down; for example 03/09/05 he weighed 168 and by 04/27/16 he weighed 145; height 5'10", temperature 99.4, pulse 89, respirations 20, BP 123/90. GENERAL: Younger than stated age white male in no obvious distress. INTEGUMENT: Slightly pale. Mucous membranes are moist. No ankle edema. HEENT: Facial symmetry. Pupils equal, round, extraocular movements intact. There is a 1 cm umbilicated raised lesion on the posterior aspect of the lateral left neck. NECK: No visible lymphadenopathy, thyromegaly, mass seen or felt and supple. CHEST: Clear. CARDIOVASCULAR: Irregular. Pacer in the left upper chest area. No ankle edema. Distal pulses intact. GI: Gentle pulsation; mildly scaphoid, no rebound, guarding or organomegaly. MUSCULOSKELETAL/NEUROLOGIC: No red swollen joints, moves all quadrants equal. Associate Technician are equal. Facial symmetry. Speech is clear. PSYCHIATRIC: Oriented to person, place. Not date and didn't know it was morning. Repetitious, asking the same questions over and over. Shallow level of insight suspect; did not know the current President. ASSESSMENT/PROBLEM LIST: 0. 86-year-old white male - advanced age. 1. Allergies/intolerances - see above. 2. Procedural history - see above. 3. Family history - see above. 4. Previous smoker. 5. Abdominal aortic aneurysm - growing without supervision (not sure if the family is really going to want this intervened). 6. Atrial fibrillation - chronic and rate controlled. 7. Coronary artery disease; if any symptoms not obvious. 8. Previous anticoagulation - indication atrial fibrillation has stopped with repetitious periods of epistaxis. 9. Lumbosacral spondylosis. 10. Diverticular disease by colonoscopy. 11. 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 12. Hiatal hernia. 13. Hyperlipidemia. 14. Hypertension. 15. Colon polyps. 16. Rheumatoid arthritis with previous immunosuppressive medicines. 17. Rosacea. 18. History of stasis. 19. Varicose veins. 20. Lanoxin therapy in the past - indication atrial fibrillation rate controlled. 21. Recurrent intermittent epistaxis - with anticoagulation. 22. History of TIA. 23. Superficial phlebitis. 24. Dementia. 25. Gait difficulties - multifactorial. 26. Occasional falls. 27. History of breast cancer - before. 28. Weight loss. REASON FOR ADMISSION: # Diarrhea # Fecal incontinence # Incidental noted abnormal chest x-ray of very questionable clinical significance # Gait decline - acute on chronic # Weight loss HOSPITAL COURSE: Mr. Arias was promptly started on IV fluids and he did seem to initially become a little less confused after a day or two of that; leading to some suggestion that he might have had some mild degree of dehydration. The diarrhea was completely resolved and we weren't even able to get samples. It was discovered that he was using up to 8 to 9 Ensures a day just simply because he liked them; again when that was stopped the diarrhea stopped. He was treated as a possible pneumonia because the ER started him on that be he never coughed and only had one brief temperature of 100; he didn't look like a pneumonia and we decided not to continue the antibiotics beyond his usual Doxycycline for Rosacea at discharge. The patient thought that he remained more confused then what they were used to (it is difficult for any of the rest of us to know that because we really weren't sure of his baseline). We did a CT of his head and it showed a subacute right parietal temporal lobe probable stroke. We weren't able to do an MRI because of his pacemaker. He was very nonvocal and the distribution of this did not have completely line up to complete significant confusion alone; but we did approach the family and the patient about the potential for considering the need for anticoagulation again(with his history of atrial fibrillation). He actually had an intermittent very benign nose bleed while here and the family reflected back to his years of nose bleeds while he was on Coumadin and other anticoagulants; and they simply didn't want to go there. With the risk of further stroke we are going without anticoagulation. Incidentally he has abdominal aneurism that he had to completely quit following as an outpatient; 5.7cm and he and the family was approached about this. They family at this point is leaning towards doing nothing expecting the consequences of any rupture. There was no abdominal pain or signs of dissection while here. Laboratory started with a white count of 5 and actually went up to 8; hgb 13 with fluids and venipuncture went to 11 and stayed there. His chemistries showed initial GFR of 55 and went to normal; a tendency for his albumin to remain low. Note again procalcitonin was 0.05 and low. Urinalysis was specific gravity 1.020 unremarkable. His blood cultures are still negative. His blood pressure went a little higher then normal; because of his atrial fibrillation and tendency to be a faster rate we just put him on Toprol and they seemed to be tolerated and useful. The family chose to use rehab at [place]; he has always declined going to consideration going to the halfway but with his living there with dementia and his progression of illness in a generalized downward fashion they maybe the introduction for him actually stay there for a longer period of time. DISCHARGE ASSESSMENT/PROBLEM LIST (CHANGED FROM ADMISSION): # Diarrhea- probably related to excessive use of Ensure-osmotic diarrhea # Fecal incontinence # Dementia- moderate # Subacute CVA-right temporal parietal # Anemia-contribute to by venipuncture # Elevated blood pressure # Atrial fibrillation-chronic # Abdominal aortic aneurism- 5.7cm- nonsurgical by patient and family choice # Gait declined PLAN: 1. Discharge to [place] 2. Medication A. Doxycycline 100mg one twice a day B. Mobic 7.5mg twice a day as needed for joint pain C. Toprol 50XL once a day D. Tylenol 325 to 500mg every four to six hours as needed for pain or Temperature 3. Diet A. General 4. Activity A. Gradually increased as able B. PT/OT referral C. Up with assistance only until cleared by PT 5. Followup A. Dr. Schaeffer we will see either on halfway rounds or before discharge PROGNOSIS: Guarded CONDITION: Stable improved MTDD
--- NOTE | 2017-04-14 15:45 | PN ---
DATE OF SERVICE: 04/13/17 CHIEF COMPLAINT: "He has had a stroke." SUBJECTIVE: This gentleman was admitted through the ER with several days of loose stools; and fecal incontinence. It was on top on dementia that is probably Alzheimer's if not related to previous CVA's; then discovering that he was drinking upwards of 9 Ensures a day. Once admitted his diarrhea stopped; we weren't even able to get any samples. It is brought to the attention today by the family that his mentation is significantly worse then usual; we explored and found that CT of his head was not done in the ER and make note that while here has never seemed vocal. We did a CT of his head and it showed a parietal temporal subacute stroke. He has paced with chronic atrial fibrillation in and out; and intolerance to anticoagulation due to recurring nose bleeds, falls and risks for injury. Discussed with the son; he still wants conservative road. The two son's are actually going through the process of trying to decide if they can convince their father [facility] at least for a period of time. There has no dysphagia or weakness of his extremities. OBJECTIVE: V/S: Temperature 97.6, pulse 108, respiratory rate 20, blood pressure 156/88. GENERAL: Pleasant, personable with no obvious distress. INTEGUMENT: Turgor is adequate, mucosa membrane is moist. no ankle edema. HEENT: Facial symmetrical, pupils are equal. Neck is supple and nontender CHEST: Clear CARDIOVASCULAR: Irregular; with no murmurs; still has the abdominal pulsation and tenderness. MUSCULOSKELETAL: No red swollen joints, all four quadrants equal PSYCHIATRIC: He knew me and knew he was in the hospital but didn't know which one; did not know the date. He didn't speak when I asked questions about his grandson's quite accurately. LABS/X-RAYS: WBC is 7.10, hgb 11.3, Chemistries are unremarkable. Blood sugar 105, BUN 15, creatinine 0.86 ASSESSMENT: # Subacute right temporal parietal lobe CVA(one would have to assume this is probably imbolic with atrial arrhythmias) # Elevated blood pressure PLAN: 1. Add Toprol 2. The son and I discussed anticoagulation and he doesn't want to use it 3. Perhaps we will know tomorrow if the family is going to seek placement MTDD
== END 2017-04-14 15:40 | DRG 391 ==
LOC: ED 20:06 → SCU 23:37
PROVIDERS: ADMIT Family Medicine; ATTEND Family Medicine
DX: K52.9 Noninfective gastroenteritis and colitis, unspecified (principal); I63.8 Other cerebral infarction; J18.9 Pneumonia, unspecified organism; I71.4 Abdominal aortic aneurysm, without rupture; R15.9 Full incontinence of feces; R91.8 Other nonspecific abnormal finding of lung field; E86.0 Dehydration; I48.2 Chronic atrial fibrillation; G30.9 Alzheimer's disease, unspecified; F02.80 Dementia in other diseases classified elsewhere, unspecified severity, without behavioral disturbance, psychotic disturbance, mood disturbance, and anxiety; D64.9 Anemia, unspecified; I10 Essential (primary) hypertension; R50.9 Fever, unspecified; R26.89 Other abnormalities of gait and mobility; Z95.0 Presence of cardiac pacemaker; Z86.73 Personal history of transient ischemic attack (TIA), and cerebral infarction without residual deficits
CPT/HCPCS: 36415; 80053; 81001; 82150; 83605; 83690; 84145; 85025; 87040; 94640; 96365; 99284

== ENCOUNTER 2017-04-20 15:42 | Outpatient (CLI) ==
[2017-04-20 19:53] VITALS: BMI 20.2
== END 2017-04-20 15:43 | disposition home or self-care (01) ==
LOC: AMBL 15:42
PROVIDERS: ATTEND Internal Medicine
DX: S29.9XXA Unspecified injury of thorax, initial encounter (principal); V43.52XA Car driver injured in collision with other type car in traffic accident, initial encounter; Z95.0 Presence of cardiac pacemaker

== ENCOUNTER 2017-04-20 15:54 | Observation (INO) | payer OTHER ==
--- NOTE | 2017-04-20 16:53 | CT ---
EXAM: CT cervical spine without contrast. HISTORY: Initial presentation for neck injury. COMPARISON: None available. TECHNIQUE: Multiple axial images of the cervical spine were obtained without intravenous contrast. Images were reformatted in the sagittal and coronal planes. FINDINGS: Curvature and alignment are normal. Vertebral body heights are maintained. There is mod erate to severe loss of disc height at C5-6. Disc heights are otherwise normal. Disc osteophyte fo rmation at C5-6 causes mild to moderate central canal stenosis. Multilevel uncovertebral hypertroph y and facet arthropathy cause multilevel neural foraminal narrowing, moderate to severe at C5-6 bila terally and mild to moderate at multiple additional levels. Paravertebral soft tissues are without acute abnormality. Atherosclerotic calcifications are present. Emphysematous changes present in th e lung apices. Left-sided pacemaker is incompletely imaged. IMPRESSION: No acute abnormality of the cervical spine.
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
[2017-04-20] MEDS: SODIUM CHLORIDE 1,000 ML IV SCH (18:41)
[2017-04-20] MEDS ORDERED: NON-FORMULARY MEDICATION (Meloxicam [Mobic] 7.5 MG) PO PRN (19:36)
[2017-04-20 19:53] VITALS: BMI 20.2
[2017-04-20 23:36] LABS: TROPONIN I 0.032 ng/ml (0.0000-0.4000)
[2017-04-21] MEDS: SODIUM CHLORIDE 1,000 ML IV SCH (05:49)
[2017-04-21 07:45] LABS: BASOPHILS % (AUTO) 0.5 % (0.0-3.0); EOSINOPHILS # (AUTO) 0.2 K/ul (0.0-0.7); HEMATOCRIT 33.5 % (42.0-52.0); HEMOGLOBIN 11.3 g/dl (14.0-18.0); IMMATURE GRANULOCYTE % (AUTO) 1.6 % (0.0-5.0); LYMPHOCYTES # (AUTO) 1.7 K/uL (0.60-3.4); MEAN CORPUSCULAR HEMOGLOBIN 32.2 pg (27.0-31.0); MEAN CORPUSCULAR HGB CONC 33.7 (31.8-35.4); MEAN CORPUSCULAR VOLUME 95.4 fl (80.0-94.0); MONOCYTES # (AUTO) 0.6 K/uL (0.4-2.0); MONOCYTES % (AUTO) 7.7 (0-10); NEUTROPHILS % (AUTO) 66.2; PLATELET COUNT 166 10^3/uL (140-440); RED BLOOD COUNT 3.51 10^6/ul (4.70-6.10); WHITE BLOOD COUNT 7.51 K/ul (4.2-10.2)
[2017-04-21 08:07] LABS: ALBUMIN 3.1 g/dL (3.4-5.0); ALBUMIN/GLOBULIN RATIO 0.94; ANION GAP 9.6; BILIRUBIN,TOTAL 0.62 mg/dL (0.00-1.20); BUN/CREATININE RATIO 21.17; CALCIUM 8.5 mg/dL (8.2-10.2); CREATININE 0.85 mg/dL (0.60-1.10); POTASSIUM 3.6 mmol/L (3.5-5.1); TOTAL PROTEIN 6.4 g/dL (5.8-8.1); TROPONIN I 0.04 ng/ml (0.0000-0.4000)
[2017-04-21] MEDS ORDERED: METOPROLOL SUCCINATE 50 MG PO SCH ×22 (09:00)
[2017-04-21 14:38] VITALS: TEMP 97.7
[2017-04-21 17:49] VITALS: BP 159/87
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
== END 2017-04-21 18:28 | disposition home or self-care (01) ==
LOC: ED 15:54 → MEDSURG B 17:41
PROVIDERS: ADMIT Family Medicine; ATTEND Family Medicine
DX: R07.89 Other chest pain (principal); S29.8XXA Other specified injuries of thorax, initial encounter; I10 Essential (primary) hypertension; I48.2 Chronic atrial fibrillation; V89.2XXA Person injured in unspecified motor-vehicle accident, traffic, initial encounter; W22.10XA Striking against or struck by unspecified automobile airbag, initial encounter; Z79.899 Other long term (current) drug therapy
CPT/HCPCS: 36415; 80053; 82550; 84484; 85025; 87081; 93005; 93010; 96360; 96361; 99284

== ENCOUNTER 2017-06-27 11:21 | Inpatient (IN) ==
[2017-06-27 12:03] LABS: BASOPHILS % (AUTO) 0.4 % (0.0-3.0); EOSINOPHILS # (AUTO) 0.1 K/ul (0.0-0.7); EOSINOPHILS % (AUTO) 0.8 % (0.0-7.0); HEMATOCRIT 36.2 % (42.0-52.0); HEMOGLOBIN 12.2 g/dl (14.0-18.0); IMMATURE GRANULOCYTE % (AUTO) 0.5 % (0.0-5.0); LYMPHOCYTES # (AUTO) 1.1 K/uL (0.60-3.4); LYMPHOCYTES % (AUTO) 15.1 (10.0-50.0); MEAN CORPUSCULAR HEMOGLOBIN 31.7 pg (27.0-31.0); MEAN CORPUSCULAR HGB CONC 33.7 (31.8-35.4); MONOCYTES # (AUTO) 0.5 K/uL (0.4-2.0); MONOCYTES % (AUTO) 6.8 (0-10); NEUTROPHILS # (AUTO) 5.6 K/ul (2.0-6.9); NEUTROPHILS % (AUTO) 76.4; PLATELET COUNT 181 10^3/uL (140-440); RED BLOOD COUNT 3.85 10^6/ul (4.70-6.10); WHITE BLOOD COUNT 7.36 K/ul (4.2-10.2)
[2017-06-27 12:30] LABS: ALBUMIN 3.3 g/dL (3.4-5.0); ALBUMIN/GLOBULIN RATIO 0.89; ANION GAP 15.6; BILIRUBIN,TOTAL 0.72 mg/dL (0.00-1.20); BUN/CREATININE RATIO 22.44; CALCIUM 9.3 mg/dL (8.2-10.2); CREATININE 0.98 mg/dL (0.60-1.10); POTASSIUM 3.6 mmol/L (3.5-5.1); TROPONIN I 0.038 ng/ml (0.0000-0.4000)
--- NOTE | 2017-06-27 12:50 | ED.PDOC ---
General ED Provider: Dr. JANIA TY Chief Complaint: Weakness Stated Complaint: WEAKNESS, FALL Time Seen by Physician: 11:30 (SEEN WITH DONI AT ALL TIMES ) Mode of Arrival: Wheelchair Information Source: Patient, Family Exam Limitations: No limitations Primary Care Provider: FOUZIA OGLESBY Nursing and Triage Documentation Reviewed and Agree: Yes Neurological Complaint Exam - Weakness Complaint/Exam Last Known Well: found on the floor 9 am Onset: Gradual Duration: 11:30 am Symptoms Are: Still present Timing: Constant Initial Severity: Mild Current Severity: Mild Character: Reports: Lightheaded, Weak Aggravating: Reports: None Alleviating: Reports: None Associated Signs and Symptoms: Denies: Nausea, Vomiting, Diaphoresis, Tinnitus, Chest pain, Short of air, Palpitations, Unsteady gait, GI blood loss, Visual changes, Decreased oral intake, Change in medication, Change in diet, OTC meds, Loss of balance Related History: Similar episode Cardiac Risk Factors: Reports: None CVA Risk Factors: Reports: None Related Surgical History: Reports: None JVD Present: No Carotid Bruit Present: No Rectal Heme Positive: No Glascow Coma Scale (see protocol): 15 Nystagmus Present: Yes Gag Reflex Present: Yes Meningeal Signs Positive: No Focal Weakness: Present: None Focal Sensory Loss: Present: None Gait: Normal Differential Diagnoses: Dysrhythmia, Hyperventilation, Hypovolemia, GI Bleed, Metabolic abnormalities, Vasovagal reaction Review of Systems - Review Of Systems Constitutional: Reports: Malaise, Weakness Eyes: Reports: No symptoms Ears, Nose, Mouth, Throat: Reports: No symptoms Respiratory: Reports: No symptoms Cardiac: Reports: No symptoms GI: Reports: No symptoms : Reports: No symptoms Musculoskeletal: Reports: No symptoms Skin: Reports: No symptoms Neurological: Reports: No symptoms Endocrine: Reports: No symptoms Hematologic/Lymphatic: Reports: No symptoms All Other Systems: Reviewed and Negative Past Medical History - Past Medical History Previously Healthy: Yes Endocrine: Reports: None Cardiovascular: Reports: Hypertension, A-Fib Respiratory: Reports: None Hematological: Reports: None Gastrointestinal: Reports: None Genitourinary: Reports: None Neuro/Psych: Reports: TIA, Dementia Musculoskeletal: Reports: Arthritis Cancer: Reports: Breast Other Pertinent Past Medical History: htn ca arth abib tia arth pacer - Surgical History General Surgical History: Reports: Pacemaker, Orthopedic (KNEE X 2, SHOULDER) - Family History Family History: Reports: Unknown - Social History Smoking Status: Former smoker Hx Substance Use: No Alcohol Screening: None Physical Exam - Physical Exam Appearance: Well-appearing, No pain distress, Well-nourished Eyes: BENY, EOMI, Conjunctiva clear ENT: Ears normal, Nose normal, Dry mucosa Respiratory: Airway patent, Breath sounds clear, Breath sounds equal, Respirations nonlabored Cardiovascular: RRR, Pulses normal, No rub, No murmur GI/: Soft, Nontender, No masses, Bowel sounds normal, No Organomegaly Musculoskeletal: Normal strength, ROM intact, No edema, No calf tenderness Skin: Warm, Dry, Normal color Neurological: Sensation intact, Motor intact, Reflexes intact, Cranial nerves intact, Alert, Oriented Psychiatric: Affect appropriate, Mood appropriate Interpretation - Radiology Interpretation Radiology Interpretation By: Radiologist (DEMAND PACED KARLTHM WITH INTENSIC RYTM BEING AFIB) Physician Notification - Case Discussed Physician Notified: julia DONAHUE Time of Notification: 12:50 (ADMITT) Admit To: Observation Critical Care Note - Critical Care Note Total Time (mins): 0 Course - Course Hematology/Chemistry: 06/27/17 11:55 06/27/17 11:55 Orders, Labs, Meds: Lab Review 06/27/17 11:55 WBC 7.36 RBC 3.85 L Hgb 12.2 L Hct 36.2 L MCV 94.0 MCH 31.7 H MCHC 33.7 RDW Coeff of Lucina 12.8 Plt Count 181 Immature Gran % (Auto) 0.5 Neut % (Auto) 76.4 Lymph % (Auto) 15.1 [place] % (Auto) 6.8 Eos % (Auto) 0.8 Baso % (Auto) 0.4 Immature Gran # (Auto) 0.0 Neut # 5.6 Lymph # 1.1 [place] # 0.5 Eos # 0.1 Baso # 0.0 Sodium 143 Potassium 3.6 Chloride 105 Carbon Dioxide 26 Anion Gap 15.6 BUN 22 H Creatinine 0.98 Estimated GFR (MDRD) 72.00 BUN/Creatinine Ratio 22.44 Glucose 119 H Lactic Acid 12.3 Calcium 9.3 Total Bilirubin 0.72 AST 12 L ALT 7 L Alkaline Phosphatase 86 Total Creatine Kinase 37 Troponin I 0.0380 Total Protein 7.0 Albumin 3.3 L Globulin 3.7 Albumin/Globulin Ratio 0.89 Procalcitonin < 0.05 Orders Category Date Time Status EKG-(ED ONLY) Stat CARDIO 06/27/17 11:44 Completed BLOOD CULTURE Stat LAB 06/27/17 11:55 Received CBC W/ AUTO DIFF Stat LAB 06/27/17 11:55 Completed COMPREHENSIVE METABOLIC PANEL Stat LAB 06/27/17 11:55 Completed CREATINE KINASE Stat LAB 06/27/17 11:55 Completed LACTIC ACID Stat LAB 06/27/17 11:55 Completed PROCALCITONIN Stat LAB 06/27/17 11:55 Completed TROPONIN I Stat LAB 06/27/17 11:55 Completed UA [URINALYSIS C & S IF INDICATED] Stat LAB 06/27/17 11:44 Uncollected CHEST, 1V AP ONLY Stat RADS 06/27/17 11:[address] CERVICAL SPINE W/O CONTRAST Stat RADS 06/27/17 11:[address] HEAD W/O CONTRAST Stat RADS 06/27/17 11:43 Taken Vital Signs: Temp Pulse Resp BP Pulse Ox 06/27/17 11:22 99.7 F H 92 H 24 162/97 H 98 Departure - Departure Time of Disposition: 12:50 Disposition: PLACED OBSERVATION Discharge Problem: Weakness generalized Anemia Qualifiers: Anemia type: unspecified type Qualifier Code: (D64.9) Anemia, unspecified Fall Qualifiers: Encounter type: initial encounter Qualifier Code: (W19.XXXA) Unspecified fall, initial encounter Instructions: Weakness (ED), Fall Prevention (ED), Fall Prevention for Older Adults (ED) Condition: Good Pt referred to PMD for follow-up: Yes (ADMITT) Allergies/Adverse Reactions: Allergies acetaminophen [From Darvocet-N 100] Adverse Reaction (Verified 06/27/17 11:28) clarithromycin [From Biaxin] Adverse Reaction (Verified 06/27/17 11:28) propoxyphene napsylate [From Darvocet-N 100] Adverse Reaction (Verified 11:28) Home Medications: Ambulatory Orders 1 [No Reported Medications] 06/27/17
--- NOTE | 2017-06-27 13:00 | CT ---
EXAM: CT Head HISTORY: Fall COMPARISON: 04/13/2017 TECHNIQUE: CT head performed without contrast FINDINGS: There is no mass effect, midline shift, or intracranial hemmorhage. [place]ario white different iation is preserved. Small CSF attenuation left parietal region measuring up to 5 mm may represent chronic hygroma or focal volume loss, appears unchanged. The ventricles, sulci, and basal cisterns a re patent. There is chronic ischemic disease of the white matter and cerebral volume loss. There i s no depressed calvarial fracture. The mastoid air cells are clear. The visualized paranasal sinuse s are clear. There are intracranial atherosclerotic calcifications. IMPRESSION: 1. No acute intracranial abnormality. 2. Small CSF attenuation left parietal region may represent small chronic hygroma or focal volume lo ss, appears unchanged. 3. Chronic ischemic disease of the white matter and cerebral volume loss. Right temporal parietal occipital encephalomalacia.
--- NOTE | 2017-06-27 13:06 | CT ---
EXAM: CT cervical spine without contrast HISTORY: Fall COMPARISON: 04/20/2017 TECHNIQUE: CT cervical spine performed without intravenous contrast. Coronal and sagittal reformat anish images obtained. FINDINGS: Vertebral bodies normal height. No fracture. No subluxation. Moderate to severe interv ertebral disc space narrowing C5-C6. Posterior disc osteophyte complex at C5-C6 causes mild to mode rate central canal narrowing. Multilevel uncovertebral and facet hypertrophy causing multilevel duane ral foraminal narrowing, moderate to severe at C5-C6 bilaterally and mild to moderate at multiple ad ditional levels. Prevertebral soft tissues appear normal. Emphysematous change lung apices. Ather osclerotic vascular calcification. IMPRESSION: 1. No fracture or subluxation. 2. Chronic discogenic degenerative disease and facet arthrosis.
[2017-06-27 13:57] LABS: BILIRUBIN,URINE Negative (NEGATIVE); KETONES,URINE Negative (NEGATIVE); LEUKOCYTE ESTERASE ,URINE Negative (NEGATIVE); NITRITE,URINE Negative (NEGATIVE); PROTEIN,URINE Trace (NEGATIVE); URINE, BLOOD Negative (NEGATIVE)
[2017-06-27 13:59] LABS: ADD URINE MICROSCOPIC YES
[2017-06-27] MEDS: SODIUM CHLORIDE 1,000 ML IV SCH (14:13)
--- NOTE | 2017-06-27 14:14 | DI ---
EXAM: Chest one view HISTORY: Cough COMPARISON: 04/12/2017 TECHNIQUE: Single view of the chest was performed FINDINGS: No airspace consolidation. Bilateral pleural plaques. No pleural effusion. No pneumoth orax. Left-sided cardiac pacer. Heart is enlarged, unchanged. Mediastinal contour unchanged, noti ng atherosclerosis. Bones appear unchanged. Surgical clips right axillary region. IMPRESSION: 1. No acute cardiopulmonary process. 2. Cardiomegaly. Cardiac pacer. 3. 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
[2017-06-27 14:36] VITALS: BMI 19.7
[2017-06-27 19:19] LABS: TROPONIN I 0.033 ng/ml (0.0000-0.4000)
[2017-06-28] MEDS: SODIUM CHLORIDE 1,000 ML IV SCH ×2 (03:11→15:17)
[2017-06-28 03:32] LABS: BASOPHILS % (AUTO) 0.6 % (0.0-3.0); EOSINOPHILS # (AUTO) 0.2 K/ul (0.0-0.7); EOSINOPHILS % (AUTO) 2.8 % (0.0-7.0); HEMATOCRIT 34.9 % (42.0-52.0); HEMOGLOBIN 11.6 g/dl (14.0-18.0); IMMATURE GRANULOCYTE % (AUTO) 0.9 % (0.0-5.0); LYMPHOCYTES # (AUTO) 1.5 K/uL (0.60-3.4); LYMPHOCYTES % (AUTO) 23.1 (10.0-50.0); MEAN CORPUSCULAR HEMOGLOBIN 31.4 pg (27.0-31.0); MEAN CORPUSCULAR HGB CONC 33.2 (31.8-35.4); MEAN CORPUSCULAR VOLUME 94.3 fl (80.0-94.0); MONOCYTES # (AUTO) 0.5 K/uL (0.4-2.0); MONOCYTES % (AUTO) 7.2 (0-10); NEUTROPHILS # (AUTO) 4.2 K/ul (2.0-6.9); NEUTROPHILS % (AUTO) 65.4; PLATELET COUNT 164 10^3/uL (140-440); WHITE BLOOD COUNT 6.41 K/ul (4.2-10.2)
[2017-06-28 03:51] LABS: ALBUMIN/GLOBULIN RATIO 0.88; ANION GAP 10.6; BILIRUBIN,TOTAL 0.55 mg/dL (0.00-1.20); BUN/CREATININE RATIO 21.34; CALCIUM 8.6 mg/dL (8.2-10.2); CREATININE 0.89 mg/dL (0.60-1.10); POTASSIUM 3.6 mmol/L (3.5-5.1); TOTAL PROTEIN 6.4 g/dL (5.8-8.1)
[2017-06-28 03:58] LABS: TROPONIN I 0.032 ng/ml (0.0000-0.4000)
[2017-06-28] MEDS ORDERED: PROCARDIA XL PO STA (17:01)
[2017-06-29] MEDS: SODIUM CHLORIDE 1,000 ML IV SCH (04:21)
[2017-06-29 05:10] LABS: BASOPHILS # (AUTO) 0.1 K/uL (0-0.2); BASOPHILS % (AUTO) 0.8 % (0.0-3.0); EOSINOPHILS # (AUTO) 0.2 K/ul (0.0-0.7); EOSINOPHILS % (AUTO) 2.9 % (0.0-7.0); HEMATOCRIT 35.3 % (42.0-52.0); HEMOGLOBIN 11.9 g/dl (14.0-18.0); IMMATURE GRANULOCYTE % (AUTO) 1.4 % (0.0-5.0); LYMPHOCYTES # (AUTO) 1.4 K/uL (0.60-3.4); LYMPHOCYTES % (AUTO) 19.2 (10.0-50.0); MEAN CORPUSCULAR HEMOGLOBIN 31.3 pg (27.0-31.0); MEAN CORPUSCULAR HGB CONC 33.7 (31.8-35.4); MEAN CORPUSCULAR VOLUME 92.9 fl (80.0-94.0); MONOCYTES # (AUTO) 0.6 K/uL (0.4-2.0); MONOCYTES % (AUTO) 8.1 (0-10); NEUTROPHILS # (AUTO) 4.9 K/ul (2.0-6.9); NEUTROPHILS % (AUTO) 67.6; PLATELET COUNT 177 10^3/uL (140-440); WHITE BLOOD COUNT 7.18 K/ul (4.2-10.2)
[2017-06-29 05:26] LABS: ALBUMIN/GLOBULIN RATIO 0.79; ANION GAP 11.8; BILIRUBIN,TOTAL 0.62 mg/dL (0.00-1.20); BUN/CREATININE RATIO 15.85; CALCIUM 8.9 mg/dL (8.2-10.2); CREATININE 0.82 mg/dL (0.60-1.10); POTASSIUM 3.8 mmol/L (3.5-5.1); TOTAL PROTEIN 6.8 g/dL (5.8-8.1)
[2017-06-29] MEDS: PROCARDIA XL PO SCH (08:16)
[2017-06-29] MEDS ORDERED: MYLANTA SUSP PO STA (08:25)
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
[2017-06-29 09:53] LABS: TROPONIN I 0.026 ng/ml (0.0000-0.4000)
[2017-06-29] MEDS ORDERED: TYLENOL PO STA (11:58)
[2017-06-29] MEDS ORDERED: PROCARDIA XL PO ONE (21:00)
[2017-06-30 06:25] LABS: BASOPHILS # (AUTO) 0.1 K/uL (0-0.2); BASOPHILS % (AUTO) 0.6 % (0.0-3.0); EOSINOPHILS # (AUTO) 0.1 K/ul (0.0-0.7); EOSINOPHILS % (AUTO) 1.5 % (0.0-7.0); HEMATOCRIT 35.8 % (42.0-52.0); HEMOGLOBIN 12.2 g/dl (14.0-18.0); IMMATURE GRANULOCYTE % (AUTO) 0.7 % (0.0-5.0); LYMPHOCYTES # (AUTO) 1.7 K/uL (0.60-3.4); LYMPHOCYTES % (AUTO) 20.9 (10.0-50.0); MEAN CORPUSCULAR HEMOGLOBIN 31.5 pg (27.0-31.0); MEAN CORPUSCULAR HGB CONC 34.1 (31.8-35.4); MEAN CORPUSCULAR VOLUME 92.5 fl (80.0-94.0); MONOCYTES # (AUTO) 0.6 K/uL (0.4-2.0); MONOCYTES % (AUTO) 7.7 (0-10); NEUTROPHILS # (AUTO) 5.6 K/ul (2.0-6.9); NEUTROPHILS % (AUTO) 68.6; PLATELET COUNT 186 10^3/uL (140-440); RED BLOOD COUNT 3.87 10^6/ul (4.70-6.10)
[2017-06-30 06:43] LABS: ALBUMIN 3.1 g/dL (3.4-5.0); ALBUMIN/GLOBULIN RATIO 0.86; ANION GAP 12.1; BILIRUBIN,TOTAL 0.61 mg/dL (0.00-1.20); BUN/CREATININE RATIO 14.1; CREATININE 0.78 mg/dL (0.60-1.10); POTASSIUM 4.1 mmol/L (3.5-5.1); TOTAL PROTEIN 6.7 g/dL (5.8-8.1)
[2017-06-30] MEDS: PROCARDIA XL PO SCH (09:41)
[2017-06-30 15:23] VITALS: BP 135/78; TEMP 98
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
== END 2017-06-30 17:22 | DRG 556 ==
LOC: ED 11:21 → MEDSURG B 13:05 → OBSVTOIN 13:05
PROVIDERS: ADMIT Family Medicine; ATTEND Family Medicine
DX: R26.2 Difficulty in walking, not elsewhere classified (principal); R53.1 Weakness; I10 Essential (primary) hypertension; I71.4 Abdominal aortic aneurysm, without rupture; I48.2 Chronic atrial fibrillation; R62.7 Adult failure to thrive; G30.9 Alzheimer's disease, unspecified; F02.80 Dementia in other diseases classified elsewhere, unspecified severity, without behavioral disturbance, psychotic disturbance, mood disturbance, and anxiety; Z91.14 Patient's other noncompliance with medication regimen; D64.9 Anemia, unspecified; R42 Dizziness and giddiness; R53.81 Other malaise; Z86.73 Personal history of transient ischemic attack (TIA), and cerebral infarction without residual deficits; W19.XXXA Unspecified fall, initial encounter; Z95.0 Presence of cardiac pacemaker; Z87.891 Personal history of nicotine dependence
CPT/HCPCS: 36415; 80053; 81001; 82550; 83605; 83874; 84145; 84484; 85025; 87040; 87070; 87186; 93005; 93010; 99284

== ENCOUNTER 2017-08-23 21:00 | Outpatient (CLI) | payer OTHER | END 2017-08-23 21:01 | disposition home or self-care (01) | LOC: AMBL 21:00 | PROVIDERS: ATTEND Emergency Medicine | DX: E86.0 Dehydration (principal); R53.1 Weakness ==